=== PATIENT | female | born 1940 | race Caucasian/White ===

== ENCOUNTER → 2017-05-02 | Outpatient (CLI) | payer MEDICARE, OTHER ==
[~2017-05-02] MED LIST: HYDRODIURIL25 MG PO; NEXIUM 24HR22.3 MG PO; ZESTRIL40 MG PO
== END | disposition disaster alternative care site (69) ==
LOC: GKIC 10:30
DX: C21.8 Malignant neoplasm of overlapping sites of rectum, anus and anal canal (principal)
CPT/HCPCS: A9552

== ENCOUNTER → 2017-05-09 | Outpatient (CLI) | payer MEDICARE, OTHER | END | disposition disaster alternative care site (69) | LOC: GOPD 05-07 | PROC: 07B63ZX Excision of Left Axillary Lymphatic, Percutaneous Approach, Diagnostic (ICD-10-PCS; principal; 2017-05-09) | DX: D36.0 Benign neoplasm of lymph nodes (principal); C21.0 Malignant neoplasm of anus, unspecified; R59.0 Localized enlarged lymph nodes ==

== ENCOUNTER → 2017-06-26 | Outpatient (CLI) | payer MEDICARE, OTHER | END | disposition disaster alternative care site (69) | LOC: GRAD 06-25 09:00 | DX: C20 Malignant neoplasm of rectum (principal) | CPT/HCPCS: Q9967 ==